=== PATIENT | female | born 1960 | race Caucasian/White ===

== ENCOUNTER 2023-09-25 04:25 | Day surgery (SDC) | payer OTHER ==
[2023-09-22 15:52] VITALS: BMI 37.8
[2023-09-25 11:06] VITALS: TEMP 97
[2023-09-25 11:46] VITALS: BP 129/54; PULSE 69; RESP 14
== END 2023-09-25 11:54 | disposition home or self-care (01) ==
LOC: JASU-ENDO 04:25
PROVIDERS: ATTEND Internal Medicine Gastroenterology
PROC: 0DBP8ZX Excision of Rectum, Via Natural or Artificial Opening Endoscopic, Diagnostic (ICD-10-PCS; 2023-09-25)
PROC: 0DB98ZX Excision of Duodenum, Via Natural or Artificial Opening Endoscopic, Diagnostic (ICD-10-PCS; 2023-09-25)
PROC: 0DB68ZX Excision of Stomach, Via Natural or Artificial Opening Endoscopic, Diagnostic (ICD-10-PCS; 2023-09-25)
PROC: 0DB48ZX Excision of Esophagogastric Junction, Via Natural or Artificial Opening Endoscopic, Diagnostic (ICD-10-PCS; 2023-09-25)
PROC: 0DBK8ZX Excision of Ascending Colon, Via Natural or Artificial Opening Endoscopic, Diagnostic (ICD-10-PCS; principal; 2023-09-25 11:00)
DX: Z12.11 Encounter for screening for malignant neoplasm of colon (principal); D12.8 Benign neoplasm of rectum; D17.5 Benign lipomatous neoplasm of intra-abdominal organs; K64.8 Other hemorrhoids; K21.00 Gastro-esophageal reflux disease with esophagitis, without bleeding; K44.9 Diaphragmatic hernia without obstruction or gangrene; K29.50 Unspecified chronic gastritis without bleeding
CPT/HCPCS: 88305-TC; 88342-TC

== ENCOUNTER 2023-10-22 13:52 | Emergency (ER) | payer OTHER ==
[2023-10-22 13:58] VITALS: BP 150/68; PULSE 76; RESP 18; TEMP 98; BMI 37.8
[2023-10-22] MEDS ORDERED: ACETAMINOPHEN 325 MG TABLET (FP) ONE (14:54)
[2023-10-22] MEDS: ACETAMINOPHEN 325 MG TABLET (FP) PO ONE (14:57)
== END 2023-10-22 17:00 | disposition home or self-care (01) ==
LOC: JERFT 13:52
DX: M25.522 Pain in left elbow (principal); M79.622 Pain in left upper arm; S53.402A Unspecified sprain of left elbow, initial encounter; S46.912A Strain of unspecified muscle, fascia and tendon at shoulder and upper arm level, left arm, initial encounter; X50.0XXA Overexertion from strenuous movement or load, initial encounter; Y99.0 Civilian activity done for income or pay
CPT/HCPCS: 73070-TC-LT-FY; 99283-25